=== PATIENT | female | born 1960 | race Caucasian/White ===

== ENCOUNTER → 2018-10-27 | Outpatient (CLI) | payer OTHER ==
--- NOTE | 2018-10-27 15:16 | REP ---
Clinical: Solitary pulmonary nodule. Technique: Axial noncontrast images from the thoracic inlet to the upper abdomen with coronal and sagittal re-formations. Comparison: No prior examination is available for comparison. Findings: There is a 5 mm subpleural noncalcified nodule along the lateral aspect of the left lower lobe (image 68). There is a small 3 mm semisolid nodule along the periphery of the right lower lobe (image 68). Lung arguello are otherwise well aerated and clear. No consolidation. No pleural effusion. No pneumothorax. Tracheobronchial tree is patent. Mediastinal lymph nodes measure up to approximately 9 mm and are nonspecific. Thoracic aorta, pulmonary vasculature and heart/pericardium are relatively normal -- a small amount of pericardial fluid is noted and nonspecific. Surrounding osseous structures without focal abnormality. Limited upper abdomen demonstrates normal bilateral adrenal glands. Impression: 1. Two noncalcified nodules as described above. The largest nodule measuring 5 mm warrants 6-month follow-up examination for high risk patient population. No prior examination is currently available for comparison and if such examinations are made available, reevaluation and addendum may be offered. Electronically Signed by Thanh Marrero MD 10/27/2018 03:08 P
== END ==
LOC: M RAD 13:58
PROVIDERS: ATTEND Family Medicine
DX: R91.1 Solitary pulmonary nodule (principal)

== ENCOUNTER → 2018-11-17 | Outpatient (REF) | payer OTHER ==
[2018-11-17 14:20] LABS: APPEARANCE, URINE HAZY (CLEAR); BACTERIA, URINE AUTO 1+ (NEGATIVE); BILIRUBIN, URINE AUTO NEGATIVE (NEGATIVE); BLOOD, URINE BLOOD NEGATIVE (NEGATIVE); COLOR, URINE YELLOW (YELLOW); GLUCOSE, URINE (UA) AUTO NEGATIVE (NEGATIVE); KETONE, URINE AUTO NEGATIVE (NEGATIVE); LEUKOCYTE ESTERASE, URINE AUTO NEGATIVE (NEGATIVE); NITRITE, URINE AUTO NEGATIVE (NEGATIVE); PROTEIN, URINE AUTO NEGATIVE (NEGATIVE); RBC, URINE AUTO 0 /HPF (0-3); SPECIFIC GRAVITY URINE AUTO 1.017 (1.002-1.035); SQUAMOUS EPITHELIAL CELL UR AU 1 /HPF (0-6); UROBILINOGEN, URINE AUTO 0.2 mg/dL (0.0-2.0); WBC, URINE AUTO 0 /HPF (0-3)
[2018-11-17 15:20] LABS: BASO # 0.1 10^3/uL (0.0-0.2); BASO % 0.7 % (0.0-1.0); EOS # 0.2 10^3/uL (0.0-0.50); HEMATOCRIT 44.8 % (36.0-47.0); HEMOGLOBIN 14.7 g/dl (12.0-15.5); LYMPH # 1.8 10^3/uL (1.5-4.5); LYMPH % 22.8 % (24.0-44.0); MEAN CORPUSCULAR HEMOGLOBIN 31.2 pg (27.0-33.0); MEAN CORPUSCULAR HGB CONC 32.8 g/dl (32.0-36.5); MEAN CORPUSCULAR VOLUME 95.1 fl (80.0-96.0); MONO # 0.9 10^3/uL (0.0-0.8); MONO % 11.2 % (0.0-5.0); NEUTROPHILS # 5.1 10^3/uL (1.8-7.7); NEUTROPHILS % 63.1 % (36.0-66.0); PLATELET COUNT, AUTOMATED 303 10^3/uL (150-450); RED BLOOD COUNT 4.71 10^6/uL (4.00-5.40)
[2018-11-17 17:44] LABS: HEMOGLOBIN A1c 5.7 %
[2018-11-17 17:45] LABS: ALBUMIN 3.6 GM/DL (3.2-5.2); ALT/SGPT 24 U/L (12-78); BILIRUBIN,TOTAL 0.2 MG/DL (0.2-1.0); BLOOD UREA NITROGEN 13 MG/DL (7-18); CALCIUM LEVEL 8.5 MG/DL (8.5-10.1); CARBON DIOXIDE LEVEL 26 MEQ/L (21-32); CHLORIDE LEVEL 109 MEQ/L (98-107); CHOLESTEROL LEVEL 223 MG/DL (<200); CHOLESTEROL RISK RATIO 4.372 (<5); CREATININE FOR GFR 0.84 MG/DL (0.55-1.30); FREE T4 0.96 NG/DL (0.76-1.46); GLOMERULAR FILTRATION RATE > 60.0 (>51); GLUCOSE, FASTING 99 MG/DL (70-100); HDL CHOLESTEROL 51 MG/DL (>40); LDL CHOLESTEROL 137 MG/DL (<100); NON-HDL-C 172 MG/DL; POTASSIUM SERUM 4.4 MEQ/L (3.5-5.1); SODIUM LEVEL 143 MEQ/L (136-145); TRIGLYCERIDES LEVEL 177 MG/DL (<150)
== END ==
LOC: M LAB REF 13:43
PROVIDERS: ATTEND Family Medicine
DX: Z13.228 Encounter for screening for other metabolic disorders (principal)

== ENCOUNTER → 2018-11-26 | Outpatient (REF) ==
--- NOTE | 2018-11-26 15:56 | REP ---
PARTIAL LUMBAR SPINE, THREE VIEWS: HISTORY: Degenerative disc disease. There is no acute fracture or subluxation. The L1-2 through L3-4 intervertebral discs are decreased in height consistent with disc degeneration. Osteophytes are present on L1-3. IMPRESSION: Degenerative change as described above. Electronically Signed by Mckinley Bray MD 11/26/2018 03:57 P
--- NOTE | 2018-11-27 01:37 | REP ---
Clinical: Right knee pain. Technique: AP, lateral, bilateral oblique and sunrise views. Findings: The osseous structures and joint spaces are intact and there is no evidence for acute fracture or dislocation. No joint effusion is appreciated. Surrounding soft tissues are unremarkable. [place] view demonstrates fraying along the anterior margin of the patella which may represent mild tendinopathy. There is a very minimal increased sclerosis primarily involving the medial tibial plateau with subtle joint space narrowing as well as mild cortical irregularity to the femoral condyles. No osteophytosis or chondrocalcinosis noted. Impression: Very mild age-related degenerative changes as noted above. Electronically Signed by Thanh Marrero MD 11/27/2018 01:29 A
== END ==
LOC: M SMT 08:05
PROVIDERS: ATTEND Internal Medicine
DX: Z00.00 Encounter for general adult medical examination without abnormal findings (principal)

== ENCOUNTER → 2018-11-27 | Outpatient (CLI) | payer OTHER ==
[2018-11-27 11:16] LABS: C REACTIVE PROTEIN QUANTITATIV < 0.30 MG/DL (0.00-0.30); COMPLEMENT C3 149 MG/DL (90-180); COMPLEMENT C4 27 MG/DL (10-40); URIC ACID 4.7 MG/DL (2.6-6.0)
[2018-12-01 00:06] LABS: COMPLEMENT TOTAL (CH50) > 60 U/mL (>41)
[2018-12-02 14:11] LABS: ANCA-ATYPICAL <1:20 titer (Neg:<1:20); ANTI DS-DNA AB <1:10 titer (.); ANTINUCLEAR ANTIBODIES DIRECT Negative (Negative); CYCLIC CITRULLINATED PEPTIDE > 250 units (0-19); CYTOPLASMIC NEUTROP AB ANCA-C <1:20 titer (Neg:<1:20); HLA-B27 Negative (.); PERINUCLEAR AB ANCA-P <1:20 titer (Neg:<1:20); RNP ANTIBODIES 0.2 AI (0.0-0.9); SJOGREN'S ANTI SS-A <0.2 AI (0.0-0.9); SJOGREN'S ANTI SS-B <0.2 AI (0.0-0.9); SMITH ANTIBODIES <0.2 AI (0.0-0.9)
== END ==
LOC: M LAB 09:29
PROVIDERS: ATTEND Family Medicine
DX: M06.9 Rheumatoid arthritis, unspecified (principal)

== ENCOUNTER → 2018-11-27 | Outpatient (CLI) | payer OTHER | LOC: M LAB 09:26 | PROVIDERS: ATTEND Internal Medicine Gastroenterology | DX: R19.4 Change in bowel habit (principal) ==

== ENCOUNTER → 2018-12-02 | Outpatient (CLI) | payer OTHER ==
--- NOTE | 2018-12-02 09:24 | REP ---
Clinical: Rheumatoid arthritis. Technique: AP, lateral and sunrise views of the right and left knee. Findings: Relatively symmetric generalized age-related degenerative changes are appreciated including subtle increase sclerosis along the medial tibial plateau as minimal associated medial joint space narrowing and mild cortical irregularity to the femoral condyles. No chondrocalcinosis, osteophytosis, erosive changes or obvious swelling. Impression: Symmetric mild generalized age-related degenerative changes. Electronically Signed by Thanh Marrero MD 12/02/2018 09:16 A
--- NOTE | 2018-12-02 09:27 | REP ---
Clinical: Rheumatoid arthritis. Technique: AP and lateral views of the right and left foot. Findings: Osseous structures, joint spaces, and surrounding soft tissues are symmetric and relatively normal for age. Mild periarticular sclerosis and minimal joint space narrowing with subtle spurring noted at the right first metatarsophalangeal joint. Small bilateral calcaneal heel spurs noted. No further overt arthritic degenerative changes are appreciated. Impression: Very mild degenerative changes at the first MTP joint. Otherwise symmetric age-appropriate examination. Electronically Signed by Thanh Marrero MD 12/02/2018 09:18 A
--- NOTE | 2018-12-02 09:35 | REP ---
Clinical: Rheumatoid arthritis. Technique: AP and lateral views of the right and left hand. Findings: Generalized age-related changes are appreciated along with mild arthritic changes including minimal periarticular sclerosis and joint space narrowing involving the interphalangeal and first metacarpophalangeal joints bilaterally. No periarticular swelling or erosive changes are identified and no significant osteophytosis is appreciated. Impression: Mild arthritic degenerative changes. Electronically Signed by Thanh Marrero MD 12/02/2018 09:26 A
== END ==
LOC: M RAD 08:08
PROVIDERS: ATTEND Family Medicine
DX: M19.041 Primary osteoarthritis, right hand (principal); M19.042 Primary osteoarthritis, left hand; M19.071 Primary osteoarthritis, right ankle and foot; M19.072 Primary osteoarthritis, left ankle and foot

== ENCOUNTER → 2019-02-01 | Outpatient (CLI) | payer OTHER ==
--- NOTE | 2019-02-01 20:18 | REPMRS ---
Patient History The patient states she had a clinical breast exam in November 2018.Patient has history of endometrial cancer at age 35. Family history of unknown cancer in maternal grandfather, endometrial cancer at age 36 in maternal grandmother, endometrial cancer at age 68 in paternal grandmother. 3D TOMOSYNTHESIS WAS PERFORMED. [facility] lifetime risk for breast cancer is 7.5%. Digital Mammo Screening Bilat: February 01, 2019 - Exam #: [id number] Bilateral CC and MLO view(s) were taken. Technologist: Ramonita Reyna, Technologist Prior study comparison: November 2017, bilateral digital woman screen mammo, performed at [facility]. FINDINGS: There are scattered fibroglandular densities. There has been no change in the appearance of the mammogram from the prior studies. There is a mild amount of residual fibroglandular tissue which is fairly symmetric. There is no interval development of dominant mass, architectural distortion, or clustered microcalcification suggestive of malignancy. Assessment: BI-RADS/ACR category 1 mammogram. Negative Mammogram. Recommendation Routine screening mammogram in 1 year (for women over age 40). This mammogram was interpreted with the aid of an FDA-approved computer-aided dectection system. Electronically Signed By: Syed Ibarra MD 02/01/192016
== END ==
LOC: M RAD 13:43
PROVIDERS: ATTEND Specialist
DX: Z12.31 Encounter for screening mammogram for malignant neoplasm of breast (principal); Z85.42 Personal history of malignant neoplasm of other parts of uterus

== ENCOUNTER → 2019-02-15 | Outpatient (REF) | payer OTHER ==
[~2019-02-15] MED LIST: ASPI81TA85 PO
[2019-02-15 12:57] LABS: ALBUMIN 3.4 GM/DL (3.2-5.2); ALT/SGPT 20 U/L (12-78); BILIRUBIN,TOTAL 0.2 MG/DL (0.2-1.0); BLOOD UREA NITROGEN 12 MG/DL (7-18); CALCIUM LEVEL 8.5 MG/DL (8.5-10.1); CARBON DIOXIDE LEVEL 28 MEQ/L (21-32); CHLORIDE LEVEL 111 MEQ/L (98-107); CHOLESTEROL LEVEL 233 MG/DL (<200); CHOLESTEROL RISK RATIO 4.755 (<5); FREE T4 0.92 NG/DL (0.76-1.46); GLOMERULAR FILTRATION RATE > 60.0 (>51); GLUCOSE, FASTING 100 MG/DL (70-100); HDL CHOLESTEROL 49 MG/DL (>40); LDL CHOLESTEROL 145 MG/DL (<100); NON-HDL-C 184 MG/DL; POTASSIUM SERUM 4.2 MEQ/L (3.5-5.1); SODIUM LEVEL 143 MEQ/L (136-145); TOTAL PROTEIN 6.8 GM/DL (6.4-8.2); TRIGLYCERIDES LEVEL 196 MG/DL (<150)
[2019-02-15 13:06] LABS: HEMOGLOBIN A1c 5.5 %
== END ==
LOC: M LAB REF 12:13
PROVIDERS: ATTEND Family Medicine
DX: E78.5 Hyperlipidemia, unspecified (principal); R73.03 Prediabetes